=== PATIENT | female | born 1955 | race African-American/Black ===

== ENCOUNTER 2022-04-21 12:45 | Emergency (ER) | payer MEDICARE, OTHER ==
[~2022-04-21] VITALS: Ht 167.6 cm; Wt 150.0 kg
[~2022-04-21 12:45] MED LIST: ACET-3161 PO; AMLO10TA80 PO; D-ME118S13 PO; DIPH25CA83 PO; HYDR25TA PO; IBUP-2030 PO; MOME13HF2 INH; SIMV-46 PO
[2022-04-21 14:28] LABS: HEMATOCRIT. 41.7 % (36.0-48.0); HEMOGLOBIN. 13.7 g/dL (12.0-16.0); MEAN CORPUSCULAR HEMOGLOBIN 28.2 pg (28.0-32.0); MEAN CORPUSCULAR VOLUME 85.8 fL (81.0-99.0); PLATELET 300 x1000/uL (130-400); RED BLOOD CELL COUNT 4.86 mill/uL (4.2-5.4); RED CELL DISTRIBUTION WIDTH 14.2 % (11.6-14.6)
[2022-04-21 14:38] LABS: CHLORIDE 90 mEq/L (98-107)
[2022-04-21 14:48] LABS: CREATINE KINASE 204 IU/L (26-192)
[2022-04-21 15:04] LABS: PARTIAL THROMBOPLASTIN TIME 27.7 sec (23.4-31.0); PROTHROMBIN TIME 10.9 sec (9.6-11.0)
[2022-04-21] MEDS ORDERED: SODIUM CHLORIDE 0.9% 1,000 ML IV ONE (15:45)
[2022-04-21 15:48] LABS: PLATELET ESTIMATE NORMAL
[2022-04-21] MEDS ORDERED: MORPHINE SULFATE 2 MG/ML CPJ (NOT FOR IM USE) IV ONE (17:00)
[2022-04-21 17:53] VITALS: BP 112/63
== END 2022-04-21 17:26 | disposition short-term general hospital (02) ==
LOC: ER 12:48 → CANBEDREQ 16:15 → ER 17:26
DX: R53.1 Weakness (principal); E87.1 Hypo-osmolality and hyponatremia; N28.9 Disorder of kidney and ureter, unspecified; I48.91 Unspecified atrial fibrillation; Z91.81 History of falling; Z20.822 Contact with and (suspected) exposure to COVID-19
CPT/HCPCS: 36415; 70450; 71045; 72192; 73560; 80053; 82550; 84484; 85025; 85610; 85730; 87426; 93005; 96361; 96374; 99285; C9803; J2270; J7030